=== PATIENT | male | born 1970 | race Caucasian/White ===

== ENCOUNTER 2021-12-18 10:42 | Day surgery (SDC) | payer OTHER ==
[~2021-12-18] VITALS: Ht 190.5 cm; Wt 115.6 kg
[2021-12-18] MEDS ORDERED: AMLO10 (11:10)
[2021-12-18] MEDS ORDERED: ATOR80 (11:10)
[2021-12-18] MEDS ORDERED: BASAGLAR K100 UNIT/1 (11:11)
[2021-12-18] MEDS ORDERED: METF500 (11:11)
[2021-12-18] MEDS ORDERED: RAMI5 (11:11)
[2021-12-18] MEDS ORDERED: TRULICITY3 MG/0.5 M (11:11)
[2021-12-18] MEDS ORDERED: METO50 (11:11)
== END 2021-12-18 13:18 | disposition home or self-care (01) ==
LOC: ORSCSDS 10:42
PROVIDERS: Internal Medicine Gastroenterology
PROC: 0DJD8ZZ Inspection of Lower Intestinal Tract, Via Natural or Artificial Opening Endoscopic (ICD-10-PCS; principal; 2021-12-18 12:00)
DX: Z12.11 Encounter for screening for malignant neoplasm of colon (principal); K57.30 Diverticulosis of large intestine without perforation or abscess without bleeding; E11.9 Type 2 diabetes mellitus without complications; Z72.0 Tobacco use; E66.9 Obesity, unspecified; Z68.32 Body mass index [BMI] 32.0-32.9, adult; Z79.84 Long term (current) use of oral hypoglycemic drugs; Z79.899 Other long term (current) drug therapy
CPT/HCPCS: 82947; J0330; J0461; J2405; J2704; J7120; Q9968